=== PATIENT | male | born 1925 | race Caucasian/White ===

== ENCOUNTER → 2016-09-05 | Outpatient (CLI) | payer MEDICARE ==
[~2016-09-05] MED LIST: ACETAMINOPHEN PO; ACETAMINOPHEN325 MG PO; ALEVE; ALL DAY ALLERGY10 M3 PO; AMLODIPINE BESYL5 MG PO; ASPIRIN81 M1 PO; ASPIRIN81 M2 PO; ASPIRINEC PO; COLCHICINE PO; COUMADIN PO; FLOMAX0.4 M1 PO; FLOMAX0.4 MG PO; HCTZ PO; INVANZ1 G/VIA1 IV; LASIX20 MG PO; LOTENSIN20 MG PO; LOTREL 5/10 MG1 CAP PO; LOTREL 5/20 MG1 CAP PO; NITROFURANTOIN100 M4 PO; POTASSIUM99 M1 PO; POTASSIUM99 M2 PO; PRAVASTATIN SOD40 MG PO; PREDNISONE PO; PROSCAR5 MG PO; VICODIN PO; VITAMIN D 22000 UNIT PO; VITAMIN D 4001 UDTAB PO; VITAMIN D31000 UNIT PO; ZYLOPRIM100 MG PO; ZYRTEC PO; ZYRTEC10 M2 PO
--- NOTE | ~2016-09-05 | CT4 ---
[facility] A Service [facility] RADIOLOGY TEXT RESULTS PATIENT: SP HERNANDEZ LOCATION: [facility] : [birth year] UNIT #: [id number] AGE: [address]: Ajay Epstein MD SEX: M ORDER DR: [id number] [facility]. [place], [place] [address] [id number] O MR#: [id number] [facility] #: [id number] NAME: SP HERNANDEZ : 1925 SEX: M STUDY DATE/TIME: 09/05/2016 9:46 UNIT: [facility] ROOM: STUDY DESCRIPTION: CT Abd and Pelv Wo Cont Attending Physician: Ajay Epstein M.D. Referring Physician: Ajay Epstein M.D. Ordering Physician: Ajay Epstein M.D. Primary Care Physician: Ajay Dailey D.O. MEDICAL IMAGING REPORT This report is preliminary unless electronic signature is present EXAM CT of the abdomen and pelvis without contrast INDICATIONS An 89-year-old male with history of followup benign prostatic hyperplasia. TECHNIQUE CT of the abdomen and pelvis was performed without contrast. Coronal and sagittal reformatted images obtained. This CT exam was performed with one or more of the following radiation dose reduction techniques: automatic exposure control, adjustment of mA and/or kV according to patient size, and iterative reconstruction. COMPARISON 06/24/2014 FINDINGS Lung bases are clear. Liver, gallbladder, and spleen are unremarkable. The left kidney is atrophic with respect to the right. There is some thickening of the urothelium involving the left ureter and some mild hydroureter on the left. The degree of hydroureter is significantly decreased compared with previous study. The right kidney is unremarkable. The adrenal glands are unremarkable. The pancreas is unremarkable. Pelvis: Prostate is unremarkable. The urinary bladder is unremarkable. Colon is unremarkable. The appendix is normal. 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 Degenerative changes lumbar spine. IMPRESSION 1. 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 [facility] A Service [facility] RADIOLOGY TEXT RESULTS PATIENT: SP HERNANDEZ LOCATION: [facility] : [birth year] UNIT #: [id number] AGE: [address]: Ajay Epstein MD SEX: M ORDER DR: 2. There is some mild left hydroureter but the degree of ureteral dilatation has significantly decreased compared with the prior study. There is some urothelial thickening involving the proximal left ureter. 3. No hydronephrosis. 4. No renal stone. Dictated by... Yosef Romero M.D. THIS IS AN ELECTRONICALLY VERIFIED REPORT Yosef Romero M.D. at 09/06/2016 11:31 AM KATHY/joann TD: 09/06/2016 00:07 JOB #: [id number] MEDICAL IMAGING REPORT Page 1 of 1 COPY
== END | disposition home or self-care (01) ==
LOC: CCAT 09:27
DX: N40.0 Benign prostatic hyperplasia without lower urinary tract symptoms (principal); N26.1 Atrophy of kidney (terminal); I10 Essential (primary) hypertension
CPT/HCPCS: 74176